=== PATIENT | male | born 1940 | race Caucasian/White ===

== ENCOUNTER 2020-01-17 10:35 | Observation (INO) | payer OTHER ==
[~2020-01-17 10:35] MED LIST: AEC81 PO; AMOX500C2 PO; APIX5TAB PO; METO-391 PO; SACU1TAB PO
[2020-01-17 11:00] LABS: BASOPHILS % (AUTO) 0.6 % (0.0-5.0); EOSINOPHILS % (AUTO) 0.6 % (0.0-8.0); HEMATOCRIT 42.9 % (42-54); LYMPHOCYTES % (AUTO) 17.1 % (21.0-51.0); MEAN CORPUSCULAR HEMOGLOBIN 29.4 pg (27.0-33.0); MEAN CORPUSCULAR HGB CONC 32.4 g/dL (32.0-36.0); MEAN CORPUSCULAR VOLUME 90.9 fL (79-99); MONOCYTES % (AUTO) 7.5 % (3.0-13.0); NEUTROPHILS % (AUTO) 73.7 % (40.0-77.0); PLATELET COUNT (AUTO) 179 K/uL (130-400); RED BLOOD CELL COUNT(AUTO) 4.72 MIL/uL (4.50-6.20); RED CELL DISTRIBUTION WIDTH 13.6 % (11.0-15.5); WHITE BLOOD COUNT (AUTO) 6.4 K/uL (4.8-10.8)
[2020-01-17 11:15] LABS: POTASSIUM 4.1 mmol/L (3.5-5.1)
[2020-01-17 11:19] LABS: ALBUMIN 3.9 g/dL (3.5-5.0); BILIRUBIN,TOTAL 1.1 mg/dL (0.2-1.0); TOTAL PROTEIN, SERUM 7.2 g/dL (6.0-8.3)
[2020-01-17 12:10] LABS: INR 1.1 (0.85-1.15); PARTIAL THROMBOPLASTIN TIME 28.9 SEC (26.3-35.5); PROTHROMBIN TIME 11.8 SEC (9.6-11.6)
[2020-01-17] MEDS ORDERED: ASPIRIN 325 MG TABLET ONE (12:10)
[2020-01-17 12:14] LABS: APPEARANCE,URINE Clear (CLEAR); BILIRUBIN,URINE Negative (NEGATIVE); COLOR,URINE Yellow (YELLOW); GLUCOSE, URINE (UA) Negative (NEGATIVE); KETONES,URINE Negative (NEGATIVE); LEUKOCYTE ESTERASE ,URINE Negative (NEGATIVE); NITRATE,URINE Negative (NEGATIVE); OCCULT BLOOD,URINE Negative (NEGATIVE); PROTEIN,URINE POS 2+ mg/dL (NEGATIVE)
[2020-01-17 12:17] LABS: AMPHET/METH SCREEN,URINE NEGATIVE (NEGATIVE); BARBITURATE SCREEN, URINE NEGATIVE (NEGATIVE); BENZODIAZEPINES SCREEN,URINE NEGATIVE (NEGATIVE); CANNABINOID SCREEN,URINE NEGATIVE (NEGATIVE); COCAINE SCREEN,URINE NEGATIVE (NEGATIVE); OPIATE SCREEN,URINE NEGATIVE (NEGATIVE); PHENCYCLIDINE SCREEN,URINE NEGATIVE (NEGATIVE)
[2020-01-17 13:18] LABS: BACTERIA,URINE Few /HPF (None Seen); RBC,URINE 0-1 /HPF (0-1); WBC,URINE 0-1 /HPF (0-1)
[2020-01-17] MEDS ORDERED: ONDANSETRON HCL 4 MG/2 ML VIAL IV PRN (14:15)
[2020-01-17] MEDS ORDERED: LACTULOSE 20 GM/30 ML UDCUP PO PRN (14:15)
[2020-01-17] MEDS ORDERED: NITROGLYCERIN 0.4 MG SL TAB SL PRN (14:15)
[2020-01-17] MEDS ORDERED: ACETAMINOPHEN 325 MG TAB PO PRN (14:15)
[2020-01-17] MEDS ORDERED: ATORVASTATIN CALCIUM 20 MG TABLET PO SCH ×2 (14:15→21:00)
[2020-01-17] MEDS ORDERED: ATORVASTATIN CALCIUM 20 MG TABLET ONE (14:43)
[2020-01-17] MEDS: METOPROLOL TARTRATE 25 MG TAB PO SCH (19:46)
[2020-01-17 20:00] VITALS: BP 120/79
[2020-01-18] VITALS: BP 134/79
[2020-01-18 04:00] VITALS: BP 110/76
[2020-01-18 06:04] LABS: BASOPHILS % (AUTO) 0.6 % (0.0-5.0); EOSINOPHILS % (AUTO) 1.3 % (0.0-8.0); HEMATOCRIT 41.4 % (42-54); LYMPHOCYTES % (AUTO) 18.5 % (21.0-51.0); MEAN CORPUSCULAR HEMOGLOBIN 29.2 pg (27.0-33.0); MEAN CORPUSCULAR HGB CONC 32.1 g/dL (32.0-36.0); MONOCYTES % (AUTO) 6.6 % (3.0-13.0); NEUTROPHILS % (AUTO) 72.7 % (40.0-77.0); PLATELET COUNT (AUTO) 158 K/uL (130-400); RED BLOOD CELL COUNT(AUTO) 4.55 MIL/uL (4.50-6.20); RED CELL DISTRIBUTION WIDTH 13.7 % (11.0-15.5); WHITE BLOOD COUNT (AUTO) 6.2 K/uL (4.8-10.8)
[2020-01-18 06:30] LABS: ALBUMIN 3.3 g/dL (3.5-5.0); BILIRUBIN,TOTAL 1.1 mg/dL (0.2-1.0); CREATININE 1.1 mg/dL (0.5-1.5); POTASSIUM 4.5 mmol/L (3.5-5.1); THYROID STIMULATING HORMONE 1.73 uIU/mL (0.36-3.74); TOTAL PROTEIN, SERUM 6.4 g/dL (6.0-8.3)
[2020-01-18 07:54] VITALS: BP 133/69
[2020-01-18] MEDS: METOPROLOL TARTRATE 25 MG TAB PO SCH (08:49)
[2020-01-18] MEDS ORDERED: ASPIRIN 81MG TAB.CHEW PO SCH (09:00)
[2020-01-18] MEDS ORDERED: FAMOTIDINE/PF 20 MG/2 ML VIAL IV SCH (09:00)
[2020-01-18] MEDS ORDERED: IOHEXOL-350 75 ML VIAL IV ONE (10:30)
[2020-01-18 12:07] VITALS: BP 121/65
[2020-01-18 15:28] VITALS: BP 128/63
--- NOTE | 2020-01-18 15:39 | NUR ---
cm note met with patient and state resides at home alone, independent with adls and ambulation. pt drives. no dme. no home services. dc plan is back home states no dc needs. Addendum: 01/18/20 at 1540 by ANSHU BISHOP CM Amended: Links added.
--- NOTE | 2020-01-18 16:03 | NUR ---
ASSUMED CARE OF PATIENT REPORT RECEIVED FROM MIRTHA Jackson RN. PT IS AAOX3 DENIES CP DENIES SOB DENIES NV NO COMPLAINTS. 2D ECHO AT BEDSIDE. CALL LIGHT WITHIN REACH.
[2020-01-18] MEDS ORDERED: ROSU10TA22 PO (17:58)
--- NOTE | 2020-01-18 18:20 | NUR ---
DISCHARGE DR HERRERA ROUNDED, [place] TO DC PT HOME DC INSTRUCTIONS GIVEN TO PATIENT. AGREES TO TAKE MEDS ORDERED AGREES TO FOLLOW UP WITH PRIMARY MD 3-5 DAYS. ALL QUESTIONS ANSWERED, PIV REMOVED CATH TIP INTACT, TELE PACK REMOVED. DOWN VIA WC WITH NURSE AIDE AND FAMILY MEMBER.
== END 2020-01-18 18:15 | disposition home or self-care (01) ==
LOC: EDH 10:35 → INTOOBSV 14:09 → EDHIP 14:09 → 4AH 16:35
PROVIDERS: ADMIT Internal Medicine; ATTEND Internal Medicine
DX: G45.9 Transient cerebral ischemic attack, unspecified (principal); I10 Essential (primary) hypertension; E78.5 Hyperlipidemia, unspecified; I48.91 Unspecified atrial fibrillation; Z95.2 Presence of prosthetic heart valve; Z79.01 Long term (current) use of anticoagulants; Z79.899 Other long term (current) drug therapy
CPT/HCPCS: 36415 ×2; 70450; 70496; 70498; 70551; 71045; 80053 ×2; 80061; 80305; 81001; 82550; 82607; 82948 ×3; 83036; 83721; 84443; 84484; 85025 ×2; 85610; 85651; 85730; 93005; 93356; 96374; 97039 ×2; 97116; 97161; 99285; C8929; G0378 ×10; G8978; G8979; G8980 ×2; G8981; G8982; G8983 ×2; J3490; Q9967